=== PATIENT | female | born 1965 | race Caucasian/White ===

== ENCOUNTER 2016-11-06 12:13 | Emergency (ER) | payer BC ==
[2016-11-06 12:41] LABS: BASOPHILS 0.7 % (0.0-2.0); HEMATOCRIT 41.5 % (36.0-48.0); HEMOGLOBIN 13.9 g/dL (12-16); IMMATURE GRANULOCYTES 0.3 % (0-5); LYMPHOCYTES 28.5 % (15-50); MCH 31.3 pg (26.0-34.0); MCHC 33.5 g/dL (31.0-37.0); MCV 93.5 fL (80.0-100.0); MEAN PLATELET VOLUME 9.2 fL (7.4-10.4); NEUTROPHILS 58.5 % (40-80); PLATELET COUNT 222 10x3/uL (130-400); RBC 4.44 10x6/uL (4.00-5.40); RDW 12.9 % (11.5-14.5)
[2016-11-06 12:54] LABS: ALBUMIN 3.9 g/dL (3.4-5.0); ALKALINE PHOSPHATASE 57 U/L (46-116); ALT (SGPT) 27 U/L (10-68); BILIRUBIN - TOTAL 0.28 mg/dL (0.2-1.3); CALC OSMOLALITY 284 mosm/kg (275-300); CALCIUM 8.3 mg/dL (8.5-10.1); CARBON DIOXIDE 26.4 mmol/L (21.0-32.0); CHLORIDE - SERUM 107 mmol/L (98-107); GLUCOSE 96 mg/dL (74-106); POTASSIUM - SERUM 3.9 mmol/L (3.5-5.1); PROTEIN - SERUM 7.7 g/dL (6.4-8.2); SODIUM 143 mmol/L (136-145); UREA NITROGEN 13 mg/dL (7-18); eGFR NON AFRICAN AMERICAN 62 mL/min (90-120)
[2016-11-06 13:06] LABS: CHOL - HDL RATIO 2.5 ratio (2.3-4.1); CHOLESTEROL, TOTAL 183 mg/dL (0-200); CKMB 0.4 U/L (0.0-3.6); CREATINE KINASE 84 UL (21-215); HDL CHOLESTEROL 73 mg/dL (32-96); LDL CHOLESTEROL 92 mg/dL (0-100); LDL-HDL RATIO 1.3 ratio (1.5-3.5); TRIGLYCERIDE 91 mg/dL (30-200)
[2016-11-06 13:07] LABS: TROPONIN-I < 0.017 ng/mL (0.000-0.060)
== END 2016-11-06 18:52 | disposition home or self-care (01) ==
LOC: D.ER 12:13
PROVIDERS: Emergency Medicine
DX: R07.9 Chest pain, unspecified (principal)